=== PATIENT | male | born 1970 | race Hispanic/Latino ===

== ENCOUNTER → 2019-07-01 | Day surgery (SDC) | payer MEDICARE ==
[2019-06-28 12:42] LABS: BASOPHILS % (AUTO) 0.7 % (0.0-5.0); EOSINOPHILS % (AUTO) 3.7 % (0.0-8.0); HEMATOCRIT 34.3 % (42-54); LYMPHOCYTES % (AUTO) 7.5 % (21.0-51.0); MEAN CORPUSCULAR HEMOGLOBIN 30.8 pg (27.0-33.0); MEAN CORPUSCULAR HGB CONC 32.5 g/dL (32.0-36.0); MEAN CORPUSCULAR VOLUME 94.6 fL (79-99); MONOCYTES % (AUTO) 6.6 % (3.0-13.0); NEUTROPHILS % (AUTO) 81.5 % (40.0-77.0); NUCLEATED RED BLOOD CELLS 0.1 % (0.0-0.19); PLATELET COUNT (AUTO) 221 K/uL (130-400); RED BLOOD CELL COUNT(AUTO) 3.63 MIL/uL (4.50-6.20); RED CELL DISTRIBUTION WIDTH 20.9 % (11.0-15.5); WHITE BLOOD COUNT (AUTO) 11.6 K/uL (4.8-10.8)
[2019-06-28 12:51] VITALS: BP 146/84
[2019-06-28 12:55] LABS: INR 1.07 (0.85-1.15); PROTHROMBIN TIME 11.2 SEC (9.6-11.6)
[2019-06-28 13:01] LABS: POTASSIUM 5.8 mmol/L (3.5-5.1)
--- NOTE | 2019-06-28 13:37 | NUR ---
EKG PER DR QUINTANILLA EKG OK
--- NOTE | 2019-06-28 13:42 | NUR ---
LABS BUN 108 CR 17.0 PT IS A DIALYSIS
--- NOTE | 2019-06-30 16:53 | NUR ---
LABS FAXED AND REPORTED ABNORMAL CBC/BMP TO DR. ARLEN CARROLL ASST. SHE WILL INFORM DR. PETTIT.
[2019-07-01] VITALS (11 sets, daily range): BP systolic 152–175; BP diastolic 72–94
[~2019-07-01] VITALS: Ht 175.3 cm; Wt 90.7 kg
[~2019-07-01] MED LIST: ASPI-1181 PO; BACITRACIN 28.4 GM OINT TP ONE; BUPIVACAINE/PF 0.25% 30ML VIAL IJ ONE; CALC667C10 PO; CLIN300C9 PO; FENTANYL CITRATE PF 50 MCG/1 ML 2ML VIAL ONE; FOLI1TAB85 PO; ICOS1CAP PO; LEVO500T2 PO; LIDOCAINE PF 2% 5ML ABBOJECT ONE; METOPROLOL ER; PROPOFOL 10 MG/ML 20ML VIAL IV ONE; SODIUM CHLORIDE 0.9% 1000ML 1,000 ML IV ONE; [UNRECOGNIZED DRUG - OTHER] INJ
[2019-07-01] MEDS: CEFAZOLIN SODIUM 1 GM VIAL IVP SCH ×2 (06:00→10:25)
--- NOTE | 2019-07-01 09:00 | NUR ---
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
== END ==
LOC: DAH 07:58
PROVIDERS: ATTEND Urology
DX: N47.1 Phimosis (principal); A58 Granuloma inguinale; N48.89 Other specified disorders of penis; E11.22 Type 2 diabetes mellitus with diabetic chronic kidney disease; I12.0 Hypertensive chronic kidney disease with stage 5 chronic kidney disease or end stage renal disease; N18.6 End stage renal disease; Z99.2 Dependence on renal dialysis; I73.9 Peripheral vascular disease, unspecified
CPT/HCPCS: 36415 ×2; 54001; 54105; 71045; 80048; 82948 ×2; 84132; 85025; 85610; 88302; 93005; A4600; A4606; A4930; J0690; J2001; J2704 ×2; J3010; J3490; J7030